=== PATIENT | male | born 1950 | race Caucasian/White ===

== ENCOUNTER → 2020-01-30 | Outpatient (CLI) | payer OTHER ==
[~2020-01-30] MED LIST: IOPAMIDOL 370 MG/ML 200 ML INFUS..BTL INJ ONE; SODIUM CHLORIDE 0.9% 100 ML ONE
[2020-01-30 12:33] LABS: CREATININE, SERUM 1.38 mg/dL (0.72-1.25)
--- NOTE | 2020-01-31 09:44 | Diagnostic Imaging Report ---
EXAM: CT Angiogram Chest WITH contrast INDICATION: Aortic aneurysm COMPARISON: None. TECHNIQUE: Chest was scanned utilizing a multidetector helical scanner from the lung apex through the level of the adrenal glands after administration of IV contrast in arterial phase. Coronal and sagittal reformations were obtained. CT Angiogram protocol was performed. 3D reconstruction was performed and viewed on dedicated workstation. Dose modulation, iterative reconstruction, and/or weight based adjustment of the mA/kV was utilized to reduce the radiation dose to as low as reasonably achievable. IV CONTRAST: 100 mL of Isovue 370 RADIATION DOSE: Total DLP: 550 mGy*cm COMPLICATIONS: None FINDINGS: VASCULAR FINDINGS: Thoracic aorta: Aortic Annulus: 2.9 cm Sinus of Valsalva: 4.0 cm Sinotubular Junction: 3.2 cm Ascending Aorta at level of PA: 3.9 cm Mid Arch: 3.8 cm Proximal Descendin.9 cm Mid Descendin.7 cm Distal Descendin.6 cm Aortic hiatus: 2.6 cm. No evidence of aortic dissection. Mild calcified and non-calcified atherosclerotic changes within the thoracic aorta. The main pulmonary artery is not enlarged. No evidence of central pulmonary embolism. LINES/ TUBES: None. LUNGS AND AIRWAYS: The central airways are patent. Mild biapical pleural parenchymal thickening/scarring. Mild upper lobe predominant centrilobular emphysema. Scattered bilateral subcentimeter calcified granulomas throughout the lungs. PLEURA: No pleural effusion. No pneumothorax. HEART AND MEDIASTINUM: The thyroid gland is normal. No supraclavicular, axillary, mediastinal, or hilar lymphadenopathy. Scattered nonenlarged calcified mediastinal and hilar lymph nodes. The heart is not enlarged. No pericardial effusion. UPPER ABDOMEN: Hepatic steatosis. No focal liver lesion. Cholelithiasis without CT evidence of cholecystitis. Calcified granulomas in the spleen. BONES/SOFT TISSUES: No acute osseous injury. No suspicious lytic or blastic lesions. IMPRESSION: No aortic aneurysm. Thoracic aortic measurements as above. Mild calcified and noncalcified atherosclerotic changes. Mild centrilobular emphysema. No focal consolidation or pulmonary edema. Scattered nonenlarged mediastinal and hilar calcified lymph nodes, pulmonary calcified granulomas, and splenic calcified granulomas consistent with prior granulomatous disease. Hepatic steatosis. Cholelithiasis without CT evidence of cholecystitis. Signed by: Wm Garcia MD on 01/31/2020 9:41 AM
== END ==
LOC: CT 11:31
PROVIDERS: ATTEND Internal Medicine Cardiovascular Disease
DX: I71.9 Aortic aneurysm of unspecified site, without rupture (principal)
CPT/HCPCS: 36415; 71275; 82565; 84520; J7050; Q9967